=== PATIENT | male | born 1970 | race Caucasian/White ===

== ENCOUNTER 2018-02-01 19:38 | Emergency (ER) | payer OTHER ==
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
[2018-02-01] MEDS ORDERED: DIPHTH/TETANUS/ACEL. PERTUSSIS IM ONLY ONE (20:15)
[2018-02-01] MEDS ORDERED: CEPH500T7 PO (21:00)
[2018-02-01 21:05] VITALS: BP 148/88
[2018-02-01] MEDS ORDERED: CEPHALEXIN 500 MG CAP TH 2 CAP/BOTTLE PO ONE (21:05)
--- NOTE | 2018-02-01 21:39 | RADIOLOGY IMAGING REPORT ---
FACILITY: [facility] PATIENT NAME: Phillip Reyes : 1970 MR: [id number] V: [id number] EXAM DATE: ORDERING PHYSICIAN: YESSI MILLAN TECHNOLOGIST: Location: [facility] - [place] Patient: Phillip Reyes : 1970 Visit/Account:[id number] Date of Sevice: 02/01/2018 INDICATION: laceration EXAM DATE: 02/01/2018 8:12 PM COMPARISON: None. FINDINGS: 3 views right hand. Mineralization is normal. No acute alignment abnormality or fracture. There is s oft tissue irregularity and swelling at the proximal aspect of the ring finger. No radiopaque foreig n body. IMPRESSION: Soft tissue irregularity and swelling at the base of the right ring finger with no radio paque foreign body or acute osseous abnormality. Report Dictated By: Dev Mendoza MD at 02/01/2018 9:34 PM Report E-Signed By: Dev Mendoza MD at 02/01/2018 9:35 PM WSN:[id number]
== END 2018-02-01 21:23 | disposition home or self-care (01) ==
LOC: ER 19:50
DX: S61.214A Laceration without foreign body of right ring finger without damage to nail, initial encounter (principal)
CPT/HCPCS: 90471; 90715; 99283